=== PATIENT | male | born 1955 | race Caucasian/White ===

== ENCOUNTER 2020-09-15 09:26 | Inpatient (IN) ==
[2020-09-15] MEDS ORDERED: Loratadine 10 MG TABLET PO PRN (22:16)
[2020-09-15] MEDS ORDERED: [UNRECOGNIZED DRUG - OTHER] IVPB SCH (22:30)
[2020-09-15] MEDS ORDERED: VANCOMYCIN IVPB SCH (22:30)
[2020-09-16] MEDS: *HR* HYDROcodone/Acet 5/325 mg TABLET PO PRN ×3 (01:11→21:29)
[2020-09-16] MEDS ORDERED: *HR* HYDROcodone/Acet 5/325 mg TABLET PO ONE (04:17)
[2020-09-16 04:53] LABS: Eosinophils % 0.7 %; Hematocrit 26.1 % (37.5-50.1); Hemoglobin 8.3 g/dL (12.9-16.9); Immature Granulocytes % 0.4 % (0-4); Lymphocytes # 0.7 K/mcL (0.6-4.6); Lymphocytes % 15.8 %; Mean Corpuscular HGB Conc 31.8 g/dL (31.6-35.5); Mean Corpuscular Hemoglobin 27.8 pg (28.0-33.3); Mean Corpuscular Volume 87.3 fL (83.0-100.0); Mean Platelet Volume 9.7 fL (9.4-12.4); Monocytes # 0.4 K/mcL (0.0-1.3); Monocytes % 9.4 %; Neutrophils # 3.4 K/mcL (1.6-8.9); Platelet Count 239 K/mcL (140-400); Red Blood Count 2.99 M/mcL (4.19-5.50); Red Cell Distribution Width 16.1 % (11.5-14.5); Segmented Neutrophils % 73.7 %; White Blood Count 4.6 K/mcL (4.3-11.1)
[2020-09-16 05:06] LABS: BUN/Creatinine Ratio 15 (6-26); Blood Urea Nitrogen 8 mg/dL (8-23); Calcium 7.2 mg/dL (8.6-10.3); Carbon Dioxide 34 mEq/L (23-29); Chloride 94 mEq/L (98-107); Glucose 76 mg/dL (70-105); Osmolality,Calculated 269 (280-300); Potassium 3.2 mEq/L (3.5-5.1); Sodium 131 mEq/L (136-145); eGFR For African Americans > 60 (> 60); eGFR For Non-African Americans > 60 (> 60)
[2020-09-16] MEDS: Ipratropium/Albuterol Neb 3 ML IH SCH ×4 (05:19→22:29)
[2020-09-16] MEDS: *HR* Enoxaparin 40 MG/0.4 ML SYRINGE SQ SCH (05:26)
[2020-09-16] MEDS: *HR* OxyCODONE ER (12 HR) 10 MG TABLET PO SCH ×2 (06:05→17:31)
[2020-09-16] MEDS: Budesonide/Formoterol 160/4.5 1 PUFF INH IH SCH ×2 (09:30→22:29)
[2020-09-16] MEDS: Metoprolol 100 MG TABLET PO SCH ×2 (09:51→21:25)
[2020-09-16] MEDS: OSTEO BI FLEX PO SCH (09:51)
[2020-09-16] MEDS: Furosemide 20 MG TABLET PO SCH (09:51)
[2020-09-16] MEDS: Gabapentin 100 MG CAPSULE PO SCH ×2 (09:51→21:25)
[2020-09-16] MEDS: Cyanocobalamin (B-12) 1,000 MCG TABLET PO SCH (09:51)
[2020-09-16] MEDS: Aspirin Enteric Coated 81 MG Tablet PO SCH (09:51)
[2020-09-16] MEDS: Vancomycin 1,750 MG/517.5 ML IV.SOLN IVPB SCH ×2 (09:56→22:52)
[2020-09-17] MEDS: Ipratropium/Albuterol Neb 3 ML IH SCH ×4 (04:27→20:05)
[2020-09-17] MEDS: *HR* OxyCODONE ER (12 HR) 10 MG TABLET PO SCH ×2 (05:48→18:07)
[2020-09-17] MEDS: *HR* Enoxaparin 40 MG/0.4 ML SYRINGE SQ SCH (05:49)
[2020-09-17] MEDS: Vancomycin 1,750 MG/517.5 ML IV.SOLN IVPB SCH ×2 (09:53→22:49)
[2020-09-17] MEDS: Aspirin Enteric Coated 81 MG Tablet PO SCH (09:53)
[2020-09-17] MEDS: Furosemide 20 MG TABLET PO SCH (09:54)
[2020-09-17] MEDS: Cyanocobalamin (B-12) 1,000 MCG TABLET PO SCH (09:54)
[2020-09-17] MEDS: Metoprolol 100 MG TABLET PO SCH ×2 (09:54→21:17)
[2020-09-17] MEDS: *HR* HYDROcodone/Acet 5/325 mg TABLET PO PRN ×2 (09:54→21:17)
[2020-09-17] MEDS: OSTEO BI FLEX PO SCH (09:54)
[2020-09-17] MEDS: Gabapentin 100 MG CAPSULE PO SCH ×2 (09:54→21:16)
[2020-09-17] MEDS: Budesonide/Formoterol 160/4.5 1 PUFF INH IH SCH ×2 (11:00→20:05)
[2020-09-17 14:08] LABS: Hematocrit 27.1 % (37.5-50.1); Hemoglobin 8.5 g/dL (12.9-16.9)
[2020-09-17 14:28] LABS: BUN/Creatinine Ratio 10 (6-26); Blood Urea Nitrogen 7 mg/dL (8-23); Calcium 7.2 mg/dL (8.6-10.3); Carbon Dioxide 32 mEq/L (23-29); Chloride 96 mEq/L (98-107); Glucose 167 mg/dL (70-105); Osmolality,Calculated 276 (280-300); Potassium 3.9 mEq/L (3.5-5.1); Sodium 132 mEq/L (136-145); eGFR For African Americans > 60 (> 60); eGFR For Non-African Americans > 60 (> 60)
[2020-09-17] MEDS ORDERED: Ipratropium/Albuterol Neb 3 ML ONE (18:37)
[2020-09-18] MEDS: *HR* HYDROcodone/Acet 5/325 mg TABLET PO PRN ×3 (01:29→20:20)
[2020-09-18] MEDS: Ipratropium/Albuterol Neb 3 ML IH SCH ×4 (03:04→21:52)
[2020-09-18] MEDS: *HR* Enoxaparin 40 MG/0.4 ML SYRINGE SQ SCH (05:55)
[2020-09-18] MEDS: *HR* OxyCODONE ER (12 HR) 10 MG TABLET PO SCH ×2 (05:56→17:17)
[2020-09-18] MEDS: Budesonide/Formoterol 160/4.5 1 PUFF INH IH SCH ×2 (09:20→21:52)
[2020-09-18] MEDS: Gabapentin 100 MG CAPSULE PO SCH ×2 (09:31→20:19)
[2020-09-18] MEDS: Aspirin Enteric Coated 81 MG Tablet PO SCH (09:32)
[2020-09-18] MEDS: Furosemide 20 MG TABLET PO SCH (09:32)
[2020-09-18] MEDS: Cyanocobalamin (B-12) 1,000 MCG TABLET PO SCH (09:32)
[2020-09-18] MEDS: Metoprolol 100 MG TABLET PO SCH ×2 (09:32→20:19)
[2020-09-18] MEDS: OSTEO BI FLEX PO SCH (10:13)
[2020-09-18] MEDS: Vancomycin 1,750 MG/517.5 ML IV.SOLN IVPB SCH ×2 (12:07→22:35)
[2020-09-19] MEDS: Ipratropium/Albuterol Neb 3 ML IH SCH ×4 (03:59→21:33)
[2020-09-19 05:14] LABS: Basophils % 0.2 %; Eosinophils # 0.1 K/mcL (0.0-0.6); Eosinophils % 1.3 %; Hematocrit 26.4 % (37.5-50.1); Hemoglobin 8.3 g/dL (12.9-16.9); Immature Granulocytes % 0.4 % (0-4); Lymphocytes # 1.4 K/mcL (0.6-4.6); Lymphocytes % 28.9 %; Mean Corpuscular HGB Conc 31.4 g/dL (31.6-35.5); Mean Corpuscular Hemoglobin 27.1 pg (28.0-33.3); Mean Corpuscular Volume 86.3 fL (83.0-100.0); Mean Platelet Volume 10.1 fL (9.4-12.4); Monocytes # 0.4 K/mcL (0.0-1.3); Monocytes % 8.6 %; Neutrophils # 2.8 K/mcL (1.6-8.9); Platelet Count 213 K/mcL (140-400); Red Blood Count 3.06 M/mcL (4.19-5.50); Red Cell Distribution Width 17.1 % (11.5-14.5); Segmented Neutrophils % 60.6 %; White Blood Count 4.7 K/mcL (4.3-11.1)
[2020-09-19 05:35] LABS: BUN/Creatinine Ratio 9 (6-26); Blood Urea Nitrogen 6 mg/dL (8-23); Calcium 7.4 mg/dL (8.6-10.3); Carbon Dioxide 33 mEq/L (23-29); Chloride 95 mEq/L (98-107); Glucose 92 mg/dL (70-105); Osmolality,Calculated 269 (280-300); Potassium 3.9 mEq/L (3.5-5.1); Sodium 131 mEq/L (136-145); eGFR For African Americans > 60 (> 60); eGFR For Non-African Americans > 60 (> 60)
[2020-09-19] MEDS: *HR* OxyCODONE ER (12 HR) 10 MG TABLET PO SCH ×2 (05:58→17:35)
[2020-09-19] MEDS: *HR* Enoxaparin 40 MG/0.4 ML SYRINGE SQ SCH (05:58)
[2020-09-19] MEDS: Cyanocobalamin (B-12) 1,000 MCG TABLET PO SCH (08:48)
[2020-09-19] MEDS: Metoprolol 100 MG TABLET PO SCH ×2 (08:48→20:17)
[2020-09-19] MEDS: Gabapentin 100 MG CAPSULE PO SCH ×2 (08:48→20:17)
[2020-09-19] MEDS: Furosemide 20 MG TABLET PO SCH (08:48)
[2020-09-19] MEDS: *HR* HYDROcodone/Acet 5/325 mg TABLET PO PRN (08:48)
[2020-09-19] MEDS: Aspirin Enteric Coated 81 MG Tablet PO SCH (08:48)
[2020-09-19] MEDS: OSTEO BI FLEX PO SCH (08:49)
[2020-09-19] MEDS: Budesonide/Formoterol 160/4.5 1 PUFF INH IH SCH ×2 (10:53→21:33)
[2020-09-19] MEDS: Vancomycin 1,750 MG/517.5 ML IV.SOLN IVPB SCH (12:25)
[2020-09-20] MEDS: Vancomycin 1,750 MG/517.5 ML IV.SOLN IVPB SCH ×3 (00:27→23:11)
[2020-09-20] MEDS: Ipratropium/Albuterol Neb 3 ML IH SCH ×4 (03:47→21:44)
[2020-09-20] MEDS: *HR* OxyCODONE ER (12 HR) 10 MG TABLET PO SCH ×2 (05:31→18:37)
[2020-09-20] MEDS: *HR* Enoxaparin 40 MG/0.4 ML SYRINGE SQ SCH (06:13)
[2020-09-20] MEDS: Furosemide 20 MG TABLET PO SCH ×2 (08:41→19:54)
[2020-09-20] MEDS: OSTEO BI FLEX PO SCH (08:42)
[2020-09-20] MEDS: Metoprolol 100 MG TABLET PO SCH ×3 (08:42→23:11)
[2020-09-20] MEDS: Gabapentin 100 MG CAPSULE PO SCH ×3 (08:42→23:11)
[2020-09-20] MEDS: Budesonide/Formoterol 160/4.5 1 PUFF INH IH SCH ×2 (08:44→21:44)
[2020-09-20] MEDS: *HR* HYDROcodone/Acet 5/325 mg TABLET PO PRN ×2 (09:12→23:11)
[2020-09-20] MEDS: Aspirin Enteric Coated 81 MG Tablet PO SCH (09:12)
[2020-09-20] MEDS: Cyanocobalamin (B-12) 1,000 MCG TABLET PO SCH (09:28)
[2020-09-20 18:52] LABS: Eosinophils # 0.1 K/mcL (0.0-0.6); Eosinophils % 3.3 %; Hematocrit 25.6 % (37.5-50.1); Hemoglobin 8.2 g/dL (12.9-16.9); Immature Granulocytes % 0.5 % (0-4); Lymphocytes # 1.1 K/mcL (0.6-4.6); Lymphocytes % 26.9 %; Mean Corpuscular Hemoglobin 27.5 pg (28.0-33.3); Mean Corpuscular Volume 85.9 fL (83.0-100.0); Mean Platelet Volume 9.2 fL (9.4-12.4); Monocytes # 0.3 K/mcL (0.0-1.3); Monocytes % 7.1 %; Neutrophils # 2.6 K/mcL (1.6-8.9); Platelet Count 220 K/mcL (140-400); Red Blood Count 2.98 M/mcL (4.19-5.50); Red Cell Distribution Width 16.9 % (11.5-14.5); Segmented Neutrophils % 62.2 %; White Blood Count 4.2 K/mcL (4.3-11.1)
[2020-09-20 19:07] LABS: BUN/Creatinine Ratio 13 (6-26); Blood Urea Nitrogen 8 mg/dL (8-23); Calcium 7.2 mg/dL (8.6-10.3); Carbon Dioxide 30 mEq/L (23-29); Chloride 97 mEq/L (98-107); Glucose 134 mg/dL (70-105); Osmolality,Calculated 270 (280-300); Potassium 4.1 mEq/L (3.5-5.1); Sodium 130 mEq/L (136-145); eGFR For African Americans > 60 (> 60); eGFR For Non-African Americans > 60 (> 60)
[2020-09-20] MEDS ORDERED: Acetaminophen 325 MG TABLET PO PRN (23:36)
[2020-09-21] MEDS: Ipratropium/Albuterol Neb 3 ML IH SCH ×4 (04:12→22:10)
[2020-09-21] MEDS: *HR* Enoxaparin 40 MG/0.4 ML SYRINGE SQ SCH (06:04)
[2020-09-21] MEDS: *HR* OxyCODONE ER (12 HR) 10 MG TABLET PO SCH ×3 (06:04→20:16)
[2020-09-21] MEDS: OSTEO BI FLEX PO SCH (08:28)
[2020-09-21] MEDS: Aspirin Enteric Coated 81 MG Tablet PO SCH (08:28)
[2020-09-21] MEDS: Furosemide 20 MG TABLET PO SCH (08:28)
[2020-09-21] MEDS: Gabapentin 100 MG CAPSULE PO SCH ×2 (08:28→20:16)
[2020-09-21] MEDS: Cyanocobalamin (B-12) 1,000 MCG TABLET PO SCH (08:28)
[2020-09-21] MEDS: Metoprolol 100 MG TABLET PO SCH ×2 (08:28→20:16)
[2020-09-21] MEDS: Budesonide/Formoterol 160/4.5 1 PUFF INH IH SCH ×2 (10:12→22:10)
[2020-09-21] MEDS ORDERED: Vancomycin 500 MG in 0.9 % Sodium Chloride Mini Bag 100 ML IVPB ONE (12:30)
[2020-09-21] MEDS ORDERED: Furosemide 20 MG/2 ML VIAL IVP ONE (13:14)
[2020-09-21] MEDS: Vancomycin 1,750 MG/517.5 ML IV.SOLN IVPB SCH (13:15)
[2020-09-21 14:42] LABS: Basophils % 0.2 %; Eosinophils # 0.2 K/mcL (0.0-0.6); Eosinophils % 3.7 %; Hematocrit 25.7 % (37.5-50.1); Hemoglobin 8.2 g/dL (12.9-16.9); Lymphocytes % 25.7 %; Mean Corpuscular HGB Conc 31.9 g/dL (31.6-35.5); Mean Corpuscular Hemoglobin 27.4 pg (28.0-33.3); Mean Platelet Volume 9.4 fL (9.4-12.4); Monocytes # 0.3 K/mcL (0.0-1.3); Monocytes % 7.9 %; Neutrophils # 2.5 K/mcL (1.6-8.9); Platelet Count 219 K/mcL (140-400); Red Blood Count 2.99 M/mcL (4.19-5.50); Red Cell Distribution Width 16.9 % (11.5-14.5); Segmented Neutrophils % 62.5 %
[2020-09-21 14:56] LABS: BUN/Creatinine Ratio 12 (6-26); Blood Urea Nitrogen 8 mg/dL (8-23); Calcium 7.2 mg/dL (8.6-10.3); Carbon Dioxide 32 mEq/L (23-29); Chloride 95 mEq/L (98-107); Glucose 106 mg/dL (70-105); Osmolality,Calculated 267 (280-300); Potassium 4.2 mEq/L (3.5-5.1); Sodium 129 mEq/L (136-145); eGFR For African Americans > 60 (> 60); eGFR For Non-African Americans > 60 (> 60)
[2020-09-21 16:19] LABS: Bilirubin,Urine Negative (Negative); Blood,Urine Large (Negative); Glucose,Urine (UA) Normal (Normal); Ketones,Urine Negative (Negative); Leukocyte Esterase,Urine Negative (Negative); Nitrite,Urine Negative (Negative); PH,Urine 6.5 pH Units (5.0-8.0); Protein,Urine Negative (Neg-Trace); Urobilinogen,Urine Normal (Normal)
[2020-09-21 16:20] LABS: Clarity,Urine Cloudy (Clear); Color,Urine Red (Yellow)
[2020-09-21 16:21] LABS: RBC,Urine TNTC per hpf (0-3); WBC,Urine 0-3 per hpf (0-3)
[2020-09-21 19:10] LABS: Adenovirus Not Detected (Not Detect); Bordetella Pertussis Not Detected (Not Detect); Chlamydophila pneumoniae Not Detected (Not Detect); Coronavirus 229E Not Detected (Not Detect); Coronavirus HKU1 Not Detected (Not Detect); Coronavirus NL63 Not Detected (Not Detect); Coronavirus OC43 Not Detected (Not Detect); Human Metapneumovirus Not Detected (Not Detect); Human Rhinovirus/Enterovirus Not Detected (Not Detect); Influenza A Subtype 2009 H1 Not Detected (Not Detect); Influenza B Not Detected (Not Detect); Mycoplasma pneumoniae Not Detected (Not Detect); Parainfluenza Virus 1 Not Detected (Not Detect); Parainfluenza Virus 2 Not Detected (Not Detect); Parainfluenza Virus 3 Not Detected (Not Detect); Parainfluenza Virus 4 Not Detected (Not Detect); Respiratory Syncytial Virus Not Detected (Not Detect); SARS-CoV-2 Not Detected (Not Detect)
[2020-09-21] MEDS ORDERED: levoFLOXacin 750 MG/150 ML 750 MG/150 ML BAG IVPB SCH (20:00)
[2020-09-22] MEDS: Vancomycin 1,500 MG/265 ML IV.SOLN IVPB SCH ×2 (01:38→10:51)
[2020-09-22] MEDS: *HR* HYDROcodone/Acet 5/325 mg TABLET PO PRN (02:13)
[2020-09-22] MEDS: Ipratropium/Albuterol Neb 3 ML IH SCH ×3 (04:01→15:45)
[2020-09-22] MEDS: *HR* Enoxaparin 40 MG/0.4 ML SYRINGE SQ SCH (04:58)
[2020-09-22] MEDS: *HR* OxyCODONE ER (12 HR) 10 MG TABLET PO SCH (04:59)
[2020-09-22 05:10] LABS: White Blood Count 3.8 K/mcL (4.3-11.1)
[2020-09-22 05:11] LABS: Eosinophils # 0.2 K/mcL (0.0-0.6); Hemoglobin 7.2 g/dL (12.9-16.9); Immature Granulocytes % 0.3 % (0-4); Lymphocytes # 1.3 K/mcL (0.6-4.6); Lymphocytes % 34.4 %; Mean Corpuscular HGB Conc 32.7 g/dL (31.6-35.5); Mean Corpuscular Volume 85.6 fL (83.0-100.0); Mean Platelet Volume 9.3 fL (9.4-12.4); Monocytes # 0.4 K/mcL (0.0-1.3); Monocytes % 9.5 %; Platelet Count 204 K/mcL (140-400); Red Blood Count 2.57 M/mcL (4.19-5.50); Red Cell Distribution Width 16.9 % (11.5-14.5); Segmented Neutrophils % 51.8 %
[2020-09-22 05:27] LABS: BUN/Creatinine Ratio 13 (6-26); Blood Urea Nitrogen 10 mg/dL (8-23); Calcium 7.1 mg/dL (8.6-10.3); Carbon Dioxide 30 mEq/L (23-29); Chloride 94 mEq/L (98-107); Glucose 117 mg/dL (70-105); Osmolality,Calculated 266 (280-300); Potassium 3.8 mEq/L (3.5-5.1); Sodium 128 mEq/L (136-145); eGFR For African Americans > 60 (> 60); eGFR For Non-African Americans > 60 (> 60)
[2020-09-22] MEDS: Furosemide 20 MG TABLET PO SCH (08:47)
[2020-09-22] MEDS: Metoprolol 100 MG TABLET PO SCH (08:47)
[2020-09-22] MEDS: OSTEO BI FLEX PO SCH (08:51)
[2020-09-22] MEDS: Budesonide/Formoterol 160/4.5 1 PUFF INH IH SCH (09:11)
[2020-09-22] MEDS: Aspirin Enteric Coated 81 MG Tablet PO SCH (09:20)
[2020-09-22] MEDS: Gabapentin 100 MG CAPSULE PO SCH (09:20)
[2020-09-22] MEDS: Cyanocobalamin (B-12) 1,000 MCG TABLET PO SCH (09:20)
[2020-09-22] MEDS ORDERED: Isovue-370 500 ML BOTTLE IVP ONE (09:25)
[2020-09-22] MEDS ORDERED: 0.9 % Sodium Chloride 500 ML IVC ONE (14:06)
[2020-09-22 15:42] VITALS: BP 146/76
== END 2020-09-22 16:16 | disposition short-term general hospital (02) | DRG 559 ==
LOC: INPGRE 21:31
PROVIDERS: ADMIT Family Medicine; ATTEND Family Medicine

== ENCOUNTER 2020-09-26 09:18 | Inpatient (IN) ==
[2020-09-29] MEDS ORDERED: Loratadine 10 MG TABLET PO PRN (19:50)
[2020-09-29] MEDS ORDERED: VANCOMYCIN IVPB SCH (20:00)
[2020-09-29] MEDS ORDERED: [UNRECOGNIZED DRUG - OTHER] IVPB SCH (20:00)
[2020-09-29] MEDS: Gabapentin 100 MG CAPSULE PO SCH (21:33)
[2020-09-29] MEDS: Ipratropium/Albuterol Neb 3 ML IH SCH (21:35)
[2020-09-29] MEDS: Budesonide/Formoterol 160/4.5 1 PUFF INH IH SCH (21:37)
[2020-09-30] MEDS ORDERED: Water for inj. (sterile) 10 ML ONE (02:56)
[2020-09-30 03:45] LABS: Basophils % 0.2 %; Eosinophils # 0.1 K/mcL (0.0-0.6); Eosinophils % 2.3 %; Hematocrit 24.7 % (37.5-50.1); Hemoglobin 7.8 g/dL (12.9-16.9); Immature Granulocytes % 0.2 % (0-4); Lymphocytes # 2.7 K/mcL (0.6-4.6); Lymphocytes % 52.5 %; Mean Corpuscular HGB Conc 31.6 g/dL (31.6-35.5); Mean Corpuscular Hemoglobin 26.6 pg (28.0-33.3); Mean Corpuscular Volume 84.3 fL (83.0-100.0); Mean Platelet Volume 8.9 fL (9.4-12.4); Monocytes # 0.6 K/mcL (0.0-1.3); Monocytes % 11.7 %; Neutrophils # 1.7 K/mcL (1.6-8.9); Platelet Count 268 K/mcL (140-400); Red Blood Count 2.93 M/mcL (4.19-5.50); Red Cell Distribution Width 17.1 % (11.5-14.5); Segmented Neutrophils % 33.1 %; White Blood Count 5.1 K/mcL (4.3-11.1)
[2020-09-30] MEDS ORDERED: VANCOMYCIN IVPB ONE (04:00)
[2020-09-30] MEDS ORDERED: SODIUM CHLORIDE 0.9% IVPB ONE (04:00)
[2020-09-30 04:02] LABS: BUN/Creatinine Ratio 10 (6-26); Blood Urea Nitrogen 7 mg/dL (8-23); Carbon Dioxide 28 mEq/L (23-29); Chloride 100 mEq/L (98-107); Glucose 99 mg/dL (70-105); Osmolality,Calculated 274 (280-300); Potassium 3.7 mEq/L (3.5-5.1); Sodium 133 mEq/L (136-145); eGFR For African Americans > 60 (> 60); eGFR For Non-African Americans > 60 (> 60)
[2020-09-30] MEDS: Ipratropium/Albuterol Neb 3 ML IH SCH ×4 (04:20→21:49)
[2020-09-30] MEDS: *HR* Enoxaparin 40 MG/0.4 ML SYRINGE SQ SCH (05:32)
[2020-09-30] MEDS: levoFLOXacin 750 MG TABLET PO SCH (08:48)
[2020-09-30] MEDS: Gabapentin 100 MG CAPSULE PO SCH ×2 (08:48→20:19)
[2020-09-30] MEDS: Cyanocobalamin (B-12) 1,000 MCG TABLET PO SCH (08:48)
[2020-09-30] MEDS: Furosemide 20 MG TABLET PO SCH (08:48)
[2020-09-30] MEDS: Aspirin Enteric Coated 81 MG Tablet PO SCH (08:48)
[2020-09-30] MEDS: Budesonide/Formoterol 160/4.5 1 PUFF INH IH SCH ×2 (09:03→21:49)
[2020-09-30] MEDS ORDERED: Ipratropium/Albuterol Neb 3 ML IH SCH (10:00)
[2020-09-30] MEDS ORDERED: Isovue-370 500 ML BOTTLE IVP ONE (11:18)
[2020-09-30] MEDS: Vancomycin 1,250 MG/262.5 ML IV.SOLN IVPB SCH (17:04)
[2020-09-30] MEDS ORDERED: 0.9 % Sodium Chloride 500 ML IVC ONE (19:03)
[2020-09-30] MEDS: 0.9 % Sodium Chloride 1,000 ML IVC SCH (20:19)
[2020-10-01] MEDS: Vancomycin 1,250 MG/262.5 ML IV.SOLN IVPB SCH ×2 (04:06→16:03)
[2020-10-01] MEDS: Ipratropium/Albuterol Neb 3 ML IH SCH ×5 (04:16→19:20)
[2020-10-01] MEDS: *HR* Enoxaparin 40 MG/0.4 ML SYRINGE SQ SCH (06:44)
[2020-10-01] MEDS: 0.9 % Sodium Chloride 1,000 ML IVC SCH (06:47)
[2020-10-01] MEDS: Furosemide 20 MG TABLET PO SCH (08:39)
[2020-10-01] MEDS: Aspirin Enteric Coated 81 MG Tablet PO SCH (08:39)
[2020-10-01] MEDS: Cyanocobalamin (B-12) 1,000 MCG TABLET PO SCH (08:39)
[2020-10-01] MEDS: Gabapentin 100 MG CAPSULE PO SCH ×2 (08:39→22:14)
[2020-10-01] MEDS: levoFLOXacin 750 MG TABLET PO SCH (08:40)
[2020-10-01] MEDS: Budesonide/Formoterol 160/4.5 1 PUFF INH IH SCH ×3 (10:28→19:20)
[2020-10-01] MEDS ORDERED: 0.9 % Sodium Chloride 1,000 ML IVC SCH (15:15)
[2020-10-01 20:08] LABS: Basophils % 0.3 %; Eosinophils # 0.1 K/mcL (0.0-0.6); Eosinophils % 1.2 %; Hemoglobin 7.9 g/dL (12.9-16.9); Immature Granulocytes % 0.3 % (0-4); Lymphocytes # 4.2 K/mcL (0.6-4.6); Lymphocytes % 64.2 %; Mean Corpuscular HGB Conc 31.6 g/dL (31.6-35.5); Mean Corpuscular Hemoglobin 26.4 pg (28.0-33.3); Mean Corpuscular Volume 83.6 fL (83.0-100.0); Monocytes # 0.8 K/mcL (0.0-1.3); Neutrophils # 1.4 K/mcL (1.6-8.9); Platelet Count 251 K/mcL (140-400); Red Blood Count 2.99 M/mcL (4.19-5.50); Red Cell Distribution Width 16.8 % (11.5-14.5); White Blood Count 6.5 K/mcL (4.3-11.1)
[2020-10-02] MEDS: Melatonin 3 MG TABLET PO SCH ×2 (01:05→20:41)
[2020-10-02] MEDS: *HR* HYDROcodone/Acet 5/325 mg TABLET PO PRN ×2 (01:05→10:28)
[2020-10-02] MEDS ORDERED: *HR* HYDROmorphone (PF) 1 MG/ML SYRINGE IVP ONE (03:32)
[2020-10-02] MEDS: Ipratropium/Albuterol Neb 3 ML IH SCH ×4 (04:17→22:04)
[2020-10-02] MEDS: Vancomycin 1,250 MG/262.5 ML IV.SOLN IVPB SCH ×2 (04:26→17:29)
[2020-10-02 05:21] LABS: Bilirubin,Urine Large (Negative); Blood,Urine Large (Negative); Clarity,Urine Slightly Cloudy (Clear); Color,Urine Red (Yellow); Glucose,Urine (UA) 250 mg/dL (Normal); Ketones,Urine 15 mg/dL (Negative); Leukocyte Esterase,Urine Large (Negative); Nitrite,Urine Positive (Negative); PH,Urine 8.5 pH Units (5.0-8.0); Protein,Urine >=300 mg/dL (Neg-Trace)
[2020-10-02 05:26] LABS: Amorphous Sediment,Urine Few per hpf (None-Few); Bacteria,Urine Moderate per hpf (None-Few); RBC,Urine 15-30 per hpf (0-3); WBC,Urine 30-50 per hpf (0-3)
[2020-10-02 06:51] LABS: Hematocrit 23.2 % (37.5-50.1); Hemoglobin 7.3 g/dL (12.9-16.9)
[2020-10-02] MEDS: Budesonide/Formoterol 160/4.5 1 PUFF INH IH SCH ×2 (09:57→22:04)
[2020-10-02] MEDS: Furosemide 20 MG TABLET PO SCH (10:22)
[2020-10-02] MEDS: Aspirin Enteric Coated 81 MG Tablet PO SCH (10:23)
[2020-10-02] MEDS: Cyanocobalamin (B-12) 1,000 MCG TABLET PO SCH (10:23)
[2020-10-02] MEDS: Gabapentin 100 MG CAPSULE PO SCH ×2 (10:23→20:41)
[2020-10-02] MEDS: levoFLOXacin 750 MG TABLET PO SCH (10:23)
[2020-10-02] MEDS ORDERED: 0.9 % Sodium Chloride 250 ML ONE (21:56)
[2020-10-03] MEDS: Vancomycin 1,250 MG/262.5 ML IV.SOLN IVPB SCH ×2 (04:03→17:23)
[2020-10-03] MEDS: Ipratropium/Albuterol Neb 3 ML IH SCH ×5 (04:10→21:51)
[2020-10-03 04:50] LABS: Hematocrit 27.3 % (37.5-50.1); Hemoglobin 8.9 g/dL (12.9-16.9); Mean Corpuscular HGB Conc 32.6 g/dL (31.6-35.5); Mean Corpuscular Hemoglobin 27.6 pg (28.0-33.3); Mean Corpuscular Volume 84.5 fL (83.0-100.0); Platelet Count 240 K/mcL (140-400); Red Blood Count 3.23 M/mcL (4.19-5.50); Red Cell Distribution Width 16.1 % (11.5-14.5); White Blood Count 5.8 K/mcL (4.3-11.1)
[2020-10-03 05:08] LABS: BUN/Creatinine Ratio 10 (6-26); Blood Urea Nitrogen 7 mg/dL (8-23); Calcium 7.7 mg/dL (8.6-10.3); Carbon Dioxide 27 mEq/L (23-29); Chloride 101 mEq/L (98-107); Glucose 101 mg/dL (70-105); Osmolality,Calculated 278 (280-300); Potassium 3.4 mEq/L (3.5-5.1); Sodium 135 mEq/L (136-145); eGFR For African Americans > 60 (> 60); eGFR For Non-African Americans > 60 (> 60)
[2020-10-03] MEDS: Gabapentin 100 MG CAPSULE PO SCH ×2 (08:38→20:49)
[2020-10-03] MEDS: Cyanocobalamin (B-12) 1,000 MCG TABLET PO SCH (08:38)
[2020-10-03] MEDS: Furosemide 20 MG TABLET PO SCH (08:38)
[2020-10-03] MEDS: levoFLOXacin 750 MG TABLET PO SCH (08:38)
[2020-10-03] MEDS: Budesonide/Formoterol 160/4.5 1 PUFF INH IH SCH ×3 (09:25→21:51)
[2020-10-03] MEDS: *HR* HYDROcodone/Acet 5/325 mg TABLET PO PRN (20:48)
[2020-10-03] MEDS: Melatonin 3 MG TABLET PO SCH (20:49)
[2020-10-04] MEDS: Vancomycin 1,250 MG/262.5 ML IV.SOLN IVPB SCH ×2 (04:02→15:51)
[2020-10-04] MEDS: Ipratropium/Albuterol Neb 3 ML IH SCH ×4 (04:29→21:54)
[2020-10-04 05:32] LABS: Hemoglobin 9.4 g/dL (12.9-16.9); Mean Corpuscular HGB Conc 32.4 g/dL (31.6-35.5); Mean Corpuscular Hemoglobin 27.4 pg (28.0-33.3); Mean Corpuscular Volume 84.5 fL (83.0-100.0); Mean Platelet Volume 8.9 fL (9.4-12.4); Platelet Count 226 K/mcL (140-400); Red Blood Count 3.43 M/mcL (4.19-5.50); Red Cell Distribution Width 16.6 % (11.5-14.5); White Blood Count 5.8 K/mcL (4.3-11.1)
[2020-10-04 05:48] LABS: BUN/Creatinine Ratio 9 (6-26); Blood Urea Nitrogen 6 mg/dL (8-23); Calcium 7.8 mg/dL (8.6-10.3); Chloride 101 mEq/L (98-107); Glucose 100 mg/dL (70-105); Osmolality,Calculated 278 (280-300); Potassium 3.2 mEq/L (3.5-5.1); Sodium 135 mEq/L (136-145); eGFR For African Americans > 60 (> 60); eGFR For Non-African Americans > 60 (> 60)
[2020-10-04 06:14] LABS: Carbon Dioxide 29 mEq/L (23-29)
[2020-10-04] MEDS: Cyanocobalamin (B-12) 1,000 MCG TABLET PO SCH (08:00)
[2020-10-04] MEDS: Furosemide 20 MG TABLET PO SCH (08:00)
[2020-10-04] MEDS: Gabapentin 100 MG CAPSULE PO SCH ×2 (08:01→21:20)
[2020-10-04] MEDS: Budesonide/Formoterol 160/4.5 1 PUFF INH IH SCH ×2 (10:50→21:54)
[2020-10-04] MEDS: *HR* HYDROcodone/Acet 5/325 mg TABLET PO PRN ×2 (16:55→21:20)
[2020-10-04] MEDS: Melatonin 3 MG TABLET PO SCH (21:20)
[2020-10-05] MEDS: Vancomycin 1,250 MG/262.5 ML IV.SOLN IVPB SCH ×2 (04:00→15:24)
[2020-10-05] MEDS: Ipratropium/Albuterol Neb 3 ML IH SCH ×4 (04:34→21:57)
[2020-10-05] MEDS: Furosemide 20 MG TABLET PO SCH (08:46)
[2020-10-05] MEDS: Gabapentin 100 MG CAPSULE PO SCH ×2 (08:47→20:33)
[2020-10-05] MEDS: Cyanocobalamin (B-12) 1,000 MCG TABLET PO SCH (08:47)
[2020-10-05] MEDS: *HR* HYDROcodone/Acet 5/325 mg TABLET PO PRN ×3 (08:55→19:35)
[2020-10-05 10:13] LABS: Basophils % 0.3 %; Eosinophils % 0.5 %; Hematocrit 29.4 % (37.5-50.1); Hemoglobin 9.5 g/dL (12.9-16.9); Immature Granulocytes % 0.1 % (0-4); Lymphocytes # 2.7 K/mcL (0.6-4.6); Lymphocytes % 36.4 %; Mean Corpuscular HGB Conc 32.3 g/dL (31.6-35.5); Mean Corpuscular Hemoglobin 27.3 pg (28.0-33.3); Mean Corpuscular Volume 84.5 fL (83.0-100.0); Mean Platelet Volume 8.5 fL (9.4-12.4); Monocytes # 1.1 K/mcL (0.0-1.3); Monocytes % 14.8 %; Neutrophils # 3.5 K/mcL (1.6-8.9); Platelet Count 222 K/mcL (140-400); Red Blood Count 3.48 M/mcL (4.19-5.50); Red Cell Distribution Width 16.8 % (11.5-14.5); Segmented Neutrophils % 47.9 %; White Blood Count 7.3 K/mcL (4.3-11.1)
[2020-10-05] MEDS: Budesonide/Formoterol 160/4.5 1 PUFF INH IH SCH ×2 (11:18→21:57)
[2020-10-05 11:36] LABS: BUN/Creatinine Ratio 9 (6-26); Blood Urea Nitrogen 7 mg/dL (8-23); Calcium 7.7 mg/dL (8.6-10.3); Carbon Dioxide 29 mEq/L (23-29); Chloride 97 mEq/L (98-107); Glucose 110 mg/dL (70-105); Osmolality,Calculated 271 (280-300); Potassium 3.3 mEq/L (3.5-5.1); Sodium 131 mEq/L (136-145); eGFR For African Americans > 60 (> 60); eGFR For Non-African Americans > 60 (> 60)
[2020-10-05] MEDS: Melatonin 3 MG TABLET PO SCH (20:33)
[2020-10-06] MEDS: Vancomycin 1,250 MG/262.5 ML IV.SOLN IVPB SCH ×2 (03:25→16:55)
[2020-10-06] MEDS: Ipratropium/Albuterol Neb 3 ML IH SCH ×4 (04:16→21:51)
[2020-10-06] MEDS: Cyanocobalamin (B-12) 1,000 MCG TABLET PO SCH (09:33)
[2020-10-06] MEDS: Gabapentin 100 MG CAPSULE PO SCH ×2 (09:33→22:56)
[2020-10-06] MEDS: Furosemide 20 MG TABLET PO SCH (09:33)
[2020-10-06] MEDS: Budesonide/Formoterol 160/4.5 1 PUFF INH IH SCH ×2 (11:22→21:51)
[2020-10-06] MEDS: *HR* HYDROcodone/Acet 5/325 mg TABLET PO PRN ×2 (11:30→22:55)
[2020-10-06 14:51] LABS: Basophils % 0.1 %; Eosinophils # 0.1 K/mcL (0.0-0.6); Eosinophils % 0.8 %; Hematocrit 29.4 % (37.5-50.1); Hemoglobin 9.3 g/dL (12.9-16.9); Immature Granulocytes % 0.4 % (0-4); Lymphocytes # 2.9 K/mcL (0.6-4.6); Mean Corpuscular HGB Conc 31.6 g/dL (31.6-35.5); Mean Corpuscular Volume 85.5 fL (83.0-100.0); Mean Platelet Volume 8.7 fL (9.4-12.4); Monocytes # 0.9 K/mcL (0.0-1.3); Monocytes % 12.3 %; Neutrophils # 3.5 K/mcL (1.6-8.9); Platelet Count 195 K/mcL (140-400); Red Blood Count 3.44 M/mcL (4.19-5.50); Segmented Neutrophils % 47.4 %; White Blood Count 7.4 K/mcL (4.3-11.1)
[2020-10-06 15:04] LABS: BUN/Creatinine Ratio 13 (6-26); Blood Urea Nitrogen 11 mg/dL (8-23); Calcium 7.8 mg/dL (8.6-10.3); Carbon Dioxide 29 mEq/L (23-29); Chloride 99 mEq/L (98-107); Glucose 103 mg/dL (70-105); Osmolality,Calculated 278 (280-300); Potassium 3.5 mEq/L (3.5-5.1); Sodium 134 mEq/L (136-145); eGFR For African Americans > 60 (> 60); eGFR For Non-African Americans > 60 (> 60)
[2020-10-06] MEDS: Melatonin 3 MG TABLET PO SCH (22:56)
[2020-10-07] MEDS: Ipratropium/Albuterol Neb 3 ML IH SCH ×4 (04:07→21:34)
[2020-10-07] MEDS: Vancomycin 1,250 MG/262.5 ML IV.SOLN IVPB SCH ×2 (04:49→17:08)
[2020-10-07] MEDS: *HR* HYDROcodone/Acet 5/325 mg TABLET PO PRN ×2 (04:50→13:49)
[2020-10-07] MEDS: Gabapentin 100 MG CAPSULE PO SCH ×2 (08:21→20:13)
[2020-10-07] MEDS: Cyanocobalamin (B-12) 1,000 MCG TABLET PO SCH (08:21)
[2020-10-07] MEDS: Furosemide 20 MG TABLET PO SCH (08:21)
[2020-10-07] MEDS: Budesonide/Formoterol 160/4.5 1 PUFF INH IH SCH ×2 (09:40→21:34)
[2020-10-07] MEDS: Melatonin 3 MG TABLET PO SCH (20:13)
[2020-10-08] MEDS: Ipratropium/Albuterol Neb 3 ML IH SCH ×4 (03:51→19:45)
[2020-10-08] MEDS: Vancomycin 1,250 MG/262.5 ML IV.SOLN IVPB SCH ×2 (04:00→15:42)
[2020-10-08] MEDS: Budesonide/Formoterol 160/4.5 1 PUFF INH IH SCH ×2 (08:01→19:45)
[2020-10-08] MEDS: Cyanocobalamin (B-12) 1,000 MCG TABLET PO SCH (08:31)
[2020-10-08] MEDS: Furosemide 20 MG TABLET PO SCH (08:31)
[2020-10-08] MEDS: Gabapentin 100 MG CAPSULE PO SCH ×2 (08:31→20:35)
[2020-10-08] MEDS: Melatonin 3 MG TABLET PO SCH (20:35)
[2020-10-09] MEDS: *HR* HYDROcodone/Acet 5/325 mg TABLET PO PRN ×2 (02:10→12:45)
[2020-10-09] MEDS: Ipratropium/Albuterol Neb 3 ML IH SCH ×4 (03:57→21:53)
[2020-10-09] MEDS: Sulfamethoxazole/Trimeth DS 1 EACH TABLET PO SCH ×2 (10:29→20:17)
[2020-10-09] MEDS: Cyanocobalamin (B-12) 1,000 MCG TABLET PO SCH (10:29)
[2020-10-09] MEDS: Gabapentin 100 MG CAPSULE PO SCH ×2 (10:30→20:17)
[2020-10-09] MEDS: Furosemide 20 MG TABLET PO SCH (10:30)
[2020-10-09] MEDS: Budesonide/Formoterol 160/4.5 1 PUFF INH IH SCH ×2 (10:32→21:53)
[2020-10-09] MEDS: Fluconazole 200 MG/100 ML 200 MG/100 ML BAG IVPB SCH (12:32)
[2020-10-09] MEDS: Melatonin 3 MG TABLET PO SCH (20:17)
[2020-10-10] MEDS: Ipratropium/Albuterol Neb 3 ML IH SCH ×4 (03:58→21:43)
[2020-10-10] MEDS: Fluconazole 200 MG/100 ML 200 MG/100 ML BAG IVPB SCH (08:55)
[2020-10-10] MEDS: Sulfamethoxazole/Trimeth DS 1 EACH TABLET PO SCH ×2 (08:56→20:51)
[2020-10-10] MEDS: Furosemide 20 MG TABLET PO SCH (08:56)
[2020-10-10] MEDS: Cyanocobalamin (B-12) 1,000 MCG TABLET PO SCH (08:56)
[2020-10-10] MEDS: *HR* HYDROcodone/Acet 5/325 mg TABLET PO PRN ×2 (08:57→22:26)
[2020-10-10] MEDS: Gabapentin 100 MG CAPSULE PO SCH ×2 (08:57→20:51)
[2020-10-10] MEDS: Budesonide/Formoterol 160/4.5 1 PUFF INH IH SCH ×2 (09:26→21:26)
[2020-10-10] MEDS: Melatonin 3 MG TABLET PO SCH (20:51)
[2020-10-11] MEDS: Ipratropium/Albuterol Neb 3 ML IH SCH ×4 (03:54→22:17)
[2020-10-11 06:41] LABS: Hematocrit 28.4 % (37.5-50.1); Mean Corpuscular HGB Conc 31.7 g/dL (31.6-35.5); Mean Corpuscular Hemoglobin 26.4 pg (28.0-33.3); Mean Corpuscular Volume 83.3 fL (83.0-100.0); Mean Platelet Volume 9.2 fL (9.4-12.4); Platelet Count 234 K/mcL (140-400); Red Blood Count 3.41 M/mcL (4.19-5.50); Red Cell Distribution Width 17.6 % (11.5-14.5); White Blood Count 4.7 K/mcL (4.3-11.1)
[2020-10-11 06:51] LABS: Alanine Aminotransferase 9 Units/L (7-52); Albumin 2.5 g/dL (3.5-5.7); Albumin/Globulin Ratio 0.8 (1.1-2.2); Alkaline Phosphatase 54 Units/L (34-104); Aspartate Amino Transferase 10 Units/L (13-39); BUN/Creatinine Ratio 9 (6-26); Bilirubin,Total 0.3 mg/dL (0.3-1.0); Blood Urea Nitrogen 6 mg/dL (8-23); Calcium 8.3 mg/dL (8.6-10.3); Carbon Dioxide 28 mEq/L (23-29); Chloride 103 mEq/L (98-107); Globulin 3.2 g/dL (2.4-3.5); Glucose 92 mg/dL (70-105); Magnesium 1.6 mg/dL (1.6-2.6); Osmolality,Calculated 283 (280-300); Potassium 3.2 mEq/L (3.5-5.1); Sodium 138 mEq/L (136-145); Total Protein 5.7 g/dL (6.4-8.9); eGFR For African Americans > 60 (> 60); eGFR For Non-African Americans > 60 (> 60)
[2020-10-11] MEDS: Gabapentin 100 MG CAPSULE PO SCH ×2 (09:09→20:28)
[2020-10-11] MEDS: Fluconazole 200 MG/100 ML 200 MG/100 ML BAG IVPB SCH (09:09)
[2020-10-11] MEDS: Furosemide 20 MG TABLET PO SCH (09:09)
[2020-10-11] MEDS: Sulfamethoxazole/Trimeth DS 1 EACH TABLET PO SCH ×2 (09:09→20:25)
[2020-10-11] MEDS: Cyanocobalamin (B-12) 1,000 MCG TABLET PO SCH (09:09)
[2020-10-11] MEDS: Budesonide/Formoterol 160/4.5 1 PUFF INH IH SCH ×2 (10:19→22:17)
[2020-10-11] MEDS ORDERED: Furosemide 20 MG/2 ML VIAL IVP ONE (19:56)
[2020-10-11] MEDS: Melatonin 3 MG TABLET PO SCH (20:27)
[2020-10-11] MEDS: *HR* HYDROcodone/Acet 5/325 mg TABLET PO PRN (21:08)
[2020-10-12] MEDS: Ipratropium/Albuterol Neb 3 ML IH SCH ×4 (04:24→21:02)
[2020-10-12] MEDS: Budesonide/Formoterol 160/4.5 1 PUFF INH IH SCH ×2 (09:41→21:02)
[2020-10-12] MEDS: Fluconazole 200 MG/100 ML 200 MG/100 ML BAG IVPB SCH (10:17)
[2020-10-12] MEDS: Cyanocobalamin (B-12) 1,000 MCG TABLET PO SCH (10:18)
[2020-10-12] MEDS: Sulfamethoxazole/Trimeth DS 1 EACH TABLET PO SCH ×2 (10:18→20:21)
[2020-10-12] MEDS: Furosemide 20 MG TABLET PO SCH (10:18)
[2020-10-12] MEDS: Gabapentin 100 MG CAPSULE PO SCH ×2 (10:18→20:22)
[2020-10-12] MEDS: Melatonin 3 MG TABLET PO SCH (20:22)
[2020-10-12] MEDS: *HR* HYDROcodone/Acet 5/325 mg TABLET PO PRN (20:28)
[2020-10-13] MEDS: Ipratropium/Albuterol Neb 3 ML IH SCH ×4 (04:01→20:12)
[2020-10-13 07:14] LABS: Hematocrit 30.2 % (37.5-50.1); Hemoglobin 9.7 g/dL (12.9-16.9); Mean Corpuscular HGB Conc 32.1 g/dL (31.6-35.5); Mean Corpuscular Hemoglobin 26.7 pg (28.0-33.3); Mean Corpuscular Volume 83.2 fL (83.0-100.0); Mean Platelet Volume 9.4 fL (9.4-12.4); Platelet Count 273 K/mcL (140-400); Red Blood Count 3.63 M/mcL (4.19-5.50); Red Cell Distribution Width 17.7 % (11.5-14.5); White Blood Count 5.9 K/mcL (4.3-11.1)
[2020-10-13 07:33] LABS: BUN/Creatinine Ratio 12 (6-26); Blood Urea Nitrogen 9 mg/dL (8-23); Calcium 8.9 mg/dL (8.6-10.3); Carbon Dioxide 28 mEq/L (23-29); Chloride 99 mEq/L (98-107); Glucose 84 mg/dL (70-105); Magnesium 1.7 mg/dL (1.6-2.6); Osmolality,Calculated 276 (280-300); Potassium 3.9 mEq/L (3.5-5.1); Sodium 134 mEq/L (136-145); eGFR For African Americans > 60 (> 60); eGFR For Non-African Americans > 60 (> 60)
[2020-10-13] MEDS: Budesonide/Formoterol 160/4.5 1 PUFF INH IH SCH ×2 (09:49→20:11)
[2020-10-13] MEDS: Gabapentin 100 MG CAPSULE PO SCH ×2 (10:00→22:55)
[2020-10-13] MEDS: Fluconazole 200 MG/100 ML 200 MG/100 ML BAG IVPB SCH (10:00)
[2020-10-13] MEDS: Cyanocobalamin (B-12) 1,000 MCG TABLET PO SCH (10:01)
[2020-10-13] MEDS: Acetaminophen 325 MG TABLET PO PRN (10:01)
[2020-10-13] MEDS: Furosemide 20 MG TABLET PO SCH (10:02)
[2020-10-13] MEDS: Sulfamethoxazole/Trimeth DS 1 EACH TABLET PO SCH ×2 (10:02→22:55)
[2020-10-13] MEDS: Melatonin 3 MG TABLET PO SCH (22:55)
[2020-10-14] MEDS: Ipratropium/Albuterol Neb 3 ML IH SCH ×4 (03:58→20:50)
[2020-10-14] MEDS ORDERED: Fluconazole 100 MG TABLET PO ONE (09:00)
[2020-10-14] MEDS: Cyanocobalamin (B-12) 1,000 MCG TABLET PO SCH (09:19)
[2020-10-14] MEDS: Gabapentin 100 MG CAPSULE PO SCH ×2 (09:19→21:02)
[2020-10-14] MEDS: Furosemide 20 MG TABLET PO SCH (09:19)
[2020-10-14] MEDS: Sulfamethoxazole/Trimeth DS 1 EACH TABLET PO SCH ×2 (09:20→21:04)
[2020-10-14] MEDS: Budesonide/Formoterol 160/4.5 1 PUFF INH IH SCH ×2 (10:08→20:50)
[2020-10-14] MEDS: Melatonin 3 MG TABLET PO SCH (21:04)
[2020-10-14] MEDS: Acetaminophen 325 MG TABLET PO PRN (21:04)
[2020-10-15] MEDS: Ipratropium/Albuterol Neb 3 ML IH SCH ×4 (03:44→19:03)
[2020-10-15] MEDS: Budesonide/Formoterol 160/4.5 1 PUFF INH IH SCH ×2 (07:36→19:03)
[2020-10-15] MEDS: Furosemide 20 MG TABLET PO SCH (09:19)
[2020-10-15] MEDS: Sulfamethoxazole/Trimeth DS 1 EACH TABLET PO SCH ×2 (09:19→19:46)
[2020-10-15] MEDS: Cyanocobalamin (B-12) 1,000 MCG TABLET PO SCH (09:19)
[2020-10-15] MEDS: Gabapentin 100 MG CAPSULE PO SCH ×2 (09:19→19:45)
[2020-10-15] MEDS: Acetaminophen 325 MG TABLET PO PRN (19:46)
[2020-10-15] MEDS: Melatonin 3 MG TABLET PO SCH (19:46)
[2020-10-16] MEDS: Ipratropium/Albuterol Neb 3 ML IH SCH ×4 (03:09→21:46)
[2020-10-16] MEDS: Budesonide/Formoterol 160/4.5 1 PUFF INH IH SCH ×2 (08:38→21:46)
[2020-10-16] MEDS: Cyanocobalamin (B-12) 1,000 MCG TABLET PO SCH (10:01)
[2020-10-16] MEDS: Furosemide 20 MG TABLET PO SCH (10:02)
[2020-10-16] MEDS: Sulfamethoxazole/Trimeth DS 1 EACH TABLET PO SCH ×2 (10:02→22:08)
[2020-10-16] MEDS: Gabapentin 100 MG CAPSULE PO SCH ×2 (10:02→22:09)
[2020-10-16] MEDS: Melatonin 3 MG TABLET PO SCH (22:08)
[2020-10-17] MEDS ORDERED: *HR* LORazepam 0.5 MG TABLET PO ONE (01:02)
[2020-10-17] MEDS: Ipratropium/Albuterol Neb 3 ML IH SCH ×4 (04:23→21:56)
[2020-10-17] MEDS: Cyanocobalamin (B-12) 1,000 MCG TABLET PO SCH (09:28)
[2020-10-17] MEDS: Sulfamethoxazole/Trimeth DS 1 EACH TABLET PO SCH ×2 (09:29→21:47)
[2020-10-17] MEDS: Furosemide 20 MG TABLET PO SCH (09:29)
[2020-10-17] MEDS: Gabapentin 100 MG CAPSULE PO SCH ×2 (09:29→21:45)
[2020-10-17] MEDS: Budesonide/Formoterol 160/4.5 1 PUFF INH IH SCH ×2 (10:19→21:56)
[2020-10-17] MEDS: Melatonin 3 MG TABLET PO SCH (21:47)
[2020-10-17] MEDS: Acetaminophen 325 MG TABLET PO PRN (21:47)
[2020-10-17] MEDS ORDERED: diazePAM 2 MG TABLET PO ONE (22:08)
[2020-10-18] MEDS: Ipratropium/Albuterol Neb 3 ML IH SCH ×4 (03:57→21:28)
[2020-10-18] MEDS: Furosemide 20 MG TABLET PO SCH (10:02)
[2020-10-18] MEDS: Gabapentin 100 MG CAPSULE PO SCH ×2 (10:02→19:40)
[2020-10-18] MEDS: Cyanocobalamin (B-12) 1,000 MCG TABLET PO SCH (10:03)
[2020-10-18] MEDS: Sulfamethoxazole/Trimeth DS 1 EACH TABLET PO SCH ×2 (10:03→19:40)
[2020-10-18] MEDS: Budesonide/Formoterol 160/4.5 1 PUFF INH IH SCH ×2 (10:35→21:28)
[2020-10-18] MEDS: Melatonin 3 MG TABLET PO SCH (19:40)
[2020-10-18] MEDS: Acetaminophen 325 MG TABLET PO PRN (19:41)
[2020-10-19] MEDS: Ipratropium/Albuterol Neb 3 ML IH SCH ×4 (04:15→22:01)
[2020-10-19] MEDS: Cyanocobalamin (B-12) 1,000 MCG TABLET PO SCH (09:25)
[2020-10-19] MEDS: Gabapentin 100 MG CAPSULE PO SCH ×2 (09:25→19:48)
[2020-10-19] MEDS: Furosemide 20 MG TABLET PO SCH (09:25)
[2020-10-19] MEDS: Sulfamethoxazole/Trimeth DS 1 EACH TABLET PO SCH ×2 (09:26→19:48)
[2020-10-19] MEDS: Budesonide/Formoterol 160/4.5 1 PUFF INH IH SCH ×2 (10:18→22:01)
[2020-10-19] MEDS: Acetaminophen 325 MG TABLET PO PRN (19:47)
[2020-10-19] MEDS: Melatonin 3 MG TABLET PO SCH (19:48)
[2020-10-20] MEDS: Ipratropium/Albuterol Neb 3 ML IH SCH ×4 (04:09→21:33)
[2020-10-20 04:50] LABS: Basophils % 0.3 %; Eosinophils # 0.1 K/mcL (0.0-0.6); Eosinophils % 1.4 %; Hematocrit 30.1 % (37.5-50.1); Hemoglobin 9.5 g/dL (12.9-16.9); Immature Granulocytes % 0.3 % (0-4); Lymphocytes # 3.6 K/mcL (0.6-4.6); Lymphocytes % 57.3 %; Mean Corpuscular HGB Conc 31.6 g/dL (31.6-35.5); Mean Corpuscular Hemoglobin 26.2 pg (28.0-33.3); Mean Corpuscular Volume 82.9 fL (83.0-100.0); Mean Platelet Volume 9.3 fL (9.4-12.4); Monocytes # 0.9 K/mcL (0.0-1.3); Monocytes % 13.7 %; Neutrophils # 1.7 K/mcL (1.6-8.9); Platelet Count 214 K/mcL (140-400); Red Blood Count 3.63 M/mcL (4.19-5.50); Red Cell Distribution Width 18.1 % (11.5-14.5); White Blood Count 6.3 K/mcL (4.3-11.1)
[2020-10-20 05:15] LABS: BUN/Creatinine Ratio 19 (6-26); Blood Urea Nitrogen 15 mg/dL (8-23); Carbon Dioxide 26 mEq/L (23-29); Chloride 101 mEq/L (98-107); Glucose 87 mg/dL (70-105); Osmolality,Calculated 278 (280-300); Potassium 4.1 mEq/L (3.5-5.1); Sodium 134 mEq/L (136-145); eGFR For African Americans > 60 (> 60); eGFR For Non-African Americans > 60 (> 60)
[2020-10-20] MEDS: Cyanocobalamin (B-12) 1,000 MCG TABLET PO SCH (08:56)
[2020-10-20] MEDS: Gabapentin 100 MG CAPSULE PO SCH ×2 (08:56→19:49)
[2020-10-20] MEDS: Sulfamethoxazole/Trimeth DS 1 EACH TABLET PO SCH ×2 (08:57→19:49)
[2020-10-20] MEDS: Furosemide 20 MG TABLET PO SCH (08:57)
[2020-10-20 09:44] LABS: C-Reactive Protein 14 mg/L (Less than 10)
[2020-10-20] MEDS: Budesonide/Formoterol 160/4.5 1 PUFF INH IH SCH ×2 (10:01→21:33)
[2020-10-20] MEDS: Melatonin 3 MG TABLET PO SCH (19:49)
[2020-10-20] MEDS: Acetaminophen 325 MG TABLET PO PRN (19:49)
[2020-10-20] MEDS ORDERED: *HR* LORazepam 0.5 MG TABLET PO ONE (22:16)
[2020-10-21] MEDS: Ipratropium/Albuterol Neb 3 ML IH SCH ×4 (03:44→21:13)
[2020-10-21] MEDS: Cyanocobalamin (B-12) 1,000 MCG TABLET PO SCH (08:52)
[2020-10-21] MEDS: Gabapentin 100 MG CAPSULE PO SCH ×2 (08:52→20:08)
[2020-10-21] MEDS: Sulfamethoxazole/Trimeth DS 1 EACH TABLET PO SCH ×2 (08:52→20:08)
[2020-10-21] MEDS: Furosemide 20 MG TABLET PO SCH (08:53)
[2020-10-21] MEDS: Budesonide/Formoterol 160/4.5 1 PUFF INH IH SCH ×2 (09:18→21:13)
[2020-10-21] MEDS ORDERED: hydrOXYzine pamoate 25 MG CAPSULE PO ONE (19:34)
[2020-10-21] MEDS: Melatonin 3 MG TABLET PO SCH (20:08)
[2020-10-21] MEDS: Acetaminophen 325 MG TABLET PO PRN (20:08)
[2020-10-22] MEDS: Ipratropium/Albuterol Neb 3 ML IH SCH ×2 (04:06→10:45)
[2020-10-22 07:08] VITALS: BP 107/70
[2020-10-22] MEDS: Sulfamethoxazole/Trimeth DS 1 EACH TABLET PO SCH (08:22)
[2020-10-22] MEDS: Gabapentin 100 MG CAPSULE PO SCH (08:22)
[2020-10-22] MEDS: Furosemide 20 MG TABLET PO SCH (08:23)
[2020-10-22] MEDS: Cyanocobalamin (B-12) 1,000 MCG TABLET PO SCH (08:23)
[2020-10-22] MEDS: Budesonide/Formoterol 160/4.5 1 PUFF INH IH SCH (10:45)
== END 2020-10-22 11:50 | disposition home health service (06) | DRG 871 ==
LOC: INPGRE 09-29 19:25
PROVIDERS: ADMIT Family Medicine; ATTEND Family Medicine

== ENCOUNTER 2021-02-20 18:08 | Inpatient (IN) ==
[2021-02-20] MEDS ORDERED: Benzonatate 100 MG CAPSULE PO PRN (19:08)
[2021-02-20] MEDS ORDERED: polyethylene glycoL 3350 17 GM POWD.PACK PO PRN (19:08)
[2021-02-20] MEDS ORDERED: Acetaminophen 325 MG TABLET PO PRN (19:08)
[2021-02-20] MEDS ORDERED: Furosemide 20 MG TABLET PO SCH ×2 (19:15→22:15)
[2021-02-20] MEDS ORDERED: Piperacillin/Tazobactam 3.375 GM in 0.9 % Sodium Chloride Mini Bag 100 ML IVPB SCH (20:00)
[2021-02-20 20:11] LABS: Basophils % 0.1 %; Hematocrit 33.9 % (37.5-50.1); Hemoglobin 10.9 g/dL (12.9-16.9); Immature Granulocytes % 0.4 % (0-4); Lymphocytes # 0.9 K/mcL (0.6-4.6); Lymphocytes % 6.6 %; Mean Corpuscular HGB Conc 32.2 g/dL (31.6-35.5); Mean Corpuscular Volume 84.1 fL (83.0-100.0); Mean Platelet Volume 9.5 fL (9.4-12.4); Monocytes # 0.9 K/mcL (0.0-1.3); Monocytes % 6.7 %; Neutrophils # 12.1 K/mcL (1.6-8.9); Platelet Count 244 K/mcL (140-400); Red Blood Count 4.03 M/mcL (4.19-5.50); Red Cell Distribution Width 16.5 % (11.5-14.5); Segmented Neutrophils % 86.2 %
[2021-02-20 20:18] LABS: ABG Base Excess 4 mEq/L (-2 to 3); ABG HCO3 26 mEq/L (21-27); ABG Oxygen Saturation 97 % (95-98); ABG PCO2 31 mmHg (35-45); ABG PH 7.53 pH Units (7.32-7.45); ABG PO2 80 mmHg (85-104); ABG TCO2 27 mEq/L (20-26)
[2021-02-20 20:26] LABS: BUN/Creatinine Ratio 30 (6-26); Blood Urea Nitrogen 19 mg/dL (8-23); Calcium 8.6 mg/dL (8.6-10.3); Carbon Dioxide 27 mEq/L (23-29); Chloride 96 mEq/L (98-107); Glucose 110 mg/dL (70-105); Osmolality,Calculated 277 (280-300); Potassium 4.1 mEq/L (3.5-5.1); Sodium 132 mEq/L (136-145); eGFR For African Americans > 60 (> 60); eGFR For Non-African Americans > 60 (> 60)
[2021-02-20] MEDS ORDERED: Gabapentin 100 MG CAPSULE PO SCH (21:00)
[2021-02-20] MEDS ORDERED: Ipratropium/Albuterol Neb 3 ML IH SCH (21:00)
[2021-02-20 23:19] VITALS: RESP 18
[2021-02-20 23:59] VITALS: PULSE 94; TEMP 98.8; O2SAT 91
[2021-02-21 00:01] VITALS: BP 96/58
[2021-02-21] MEDS ORDERED: OLOPATADINE HCL OP SCH (09:00)
[2021-02-21] MEDS ORDERED: DAPTOmycin 400 MG in 0.9 % Sodium Chloride 100 ML IVPB SCH (09:00)
[2021-02-21] MEDS ORDERED: Aspirin Enteric Coated 81 MG Tablet PO SCH (09:00)
[2021-02-21] MEDS ORDERED: DAPTOmycin 500 MG VIAL IVPB SCH (09:00)
== END 2021-02-21 00:15 | disposition other institution (70) | DRG 949 ==
LOC: INPGRE 18:08
PROVIDERS: ADMIT Family Medicine; ATTEND Family Medicine